=== PATIENT | male | born 1990 | race Caucasian/White ===

== ENCOUNTER 2022-02-22 09:48 | Emergency (ER) | payer OTHER ==
[2022-02-22 10:01] VITALS: BP 119/78; PULSE 66; RESP 18; TEMP 97.6; BMI 28.5
[2022-02-22] MEDS ORDERED: IBUPROFEN 600 MG TABLET (FP) PO ONE (10:23)
== END 2022-02-22 11:28 | disposition home or self-care (01) ==
LOC: JERFT 09:48
DX: M79.601 Pain in right arm (principal)
CPT/HCPCS: 99283-25

== ENCOUNTER 2022-08-20 08:38 | Emergency (ER) | payer OTHER ==
[2022-08-20 08:46] VITALS: BP 119/71; PULSE 67; RESP 18; TEMP 97.4; BMI 27.8
== END 2022-08-20 10:16 | disposition home or self-care (01) ==
LOC: JERFT 08:38
DX: M25.572 Pain in left ankle and joints of left foot (principal); S93.402A Sprain of unspecified ligament of left ankle, initial encounter; X50.1XXA Overexertion from prolonged static or awkward postures, initial encounter; Y93.01 Activity, walking, marching and hiking; Y99.0 Civilian activity done for income or pay
CPT/HCPCS: 73610-TC-LT-FY; 99283-25

== ENCOUNTER 2023-08-11 08:18 | Emergency (ER) | payer OTHER ==
[2023-08-11 08:24] VITALS: BP 146/82; PULSE 76; RESP 20; TEMP 98; BMI 28.5
[2023-08-11] MEDS ORDERED: KETOROLAC TROMETHAMINE 30 MG/1 ML VIAL ONE (09:11)
[2023-08-11] MEDS ORDERED: CYCLOBENZAPRINE HCL 10 MG TABLET (FP) ONE (09:11)
[2023-08-11] MEDS: CYCLOBENZAPRINE HCL 10 MG TABLET (FP) PO ONE (09:17)
[2023-08-11] MEDS: KETOROLAC TROMETHAMINE 30 MG/1 ML VIAL IM ONE (09:17)
== END 2023-08-11 10:15 | disposition home or self-care (01) ==
LOC: JERFT 08:18
PROC: 3E023GC Introduction of Other Therapeutic Substance into Muscle, Percutaneous Approach (ICD-10-PCS; principal; 2023-08-11)
DX: M54.50 Low back pain, unspecified (principal); X50.1XXA Overexertion from prolonged static or awkward postures, initial encounter; Y93.01 Activity, walking, marching and hiking
CPT/HCPCS: 99284-25

== ENCOUNTER 2023-09-25 16:29 | Emergency (ER) | payer OTHER ==
[2023-09-25 16:43] VITALS: BP 128/79; PULSE 78; RESP 19; TEMP 98.1; BMI 27.8
== END 2023-09-25 17:51 | disposition home or self-care (01) ==
LOC: JERFT 16:29
DX: M77.9 Enthesopathy, unspecified (principal); M79.672 Pain in left foot; W10.9XXA Fall (on) (from) unspecified stairs and steps, initial encounter
CPT/HCPCS: 99282-25

== ENCOUNTER 2024-04-27 19:11 | Emergency (ER) | payer OTHER ==
[2024-04-27 19:41] VITALS: BP 116/74; PULSE 79; RESP 18; TEMP 97; BMI 27.8
[2024-04-27] MEDS ORDERED: KETOROLAC TROMETHAMINE 15 MG/ML VIAL ONE (20:17)
[2024-04-27] MEDS ORDERED: LIDOCAINE 5% TOPICAL PATCH ONE (20:17)
[2024-04-27] MEDS: KETOROLAC TROMETHAMINE 15 MG/ML VIAL IM ONE (21:17)
[2024-04-27] MEDS: LIDOCAINE 5% TOPICAL PATCH TP ONE (21:21)
[2024-04-27] MEDS ORDERED: LIDOCAINE PATCH REMOVAL MC SCH (22:00)
== END 2024-04-27 21:19 | disposition home or self-care (01) ==
LOC: JERFT 19:11 → JER 19:11 → JERFT 21:19
DX: M79.10 Myalgia, unspecified site (principal)
CPT/HCPCS: 99283-25